=== PATIENT | female | born 1970 | race Caucasian/White ===

== ENCOUNTER 2018-03-08 22:31 | Emergency (ER) | payer OTHER ==
[~2018-03-08] VITALS: Ht 152.4 cm; Wt 49.9 kg
[2018-03-08] MEDS ORDERED: ZOLOFT50 MG (23:05)
[2018-03-08] MEDS ORDERED: CRESTOR5 MG (23:05)
[2018-03-08] MEDS ORDERED: PROZAC20 MG (23:05)
[2018-03-09] MEDS ORDERED: MEDROL4 MG PO (04:16)
== END 2018-03-09 04:22 | disposition home or self-care (01) ==
LOC: ER 22:31
DX: J32.8 Other chronic sinusitis (principal)

== ENCOUNTER 2022-10-29 20:53 | Emergency (ER) | payer OTHER ==
[~2022-10-29] VITALS: Ht 152.4 cm; Wt 52.6 kg
[~2022-10-29 20:53] MED LIST: CRESTOR5 MG; MEDROL4 MG PO; PROZAC20 MG; ZOLOFT50 MG
== END 2022-10-29 23:46 | disposition home or self-care (01) ==
LOC: ER 20:53
DX: N30.90 Cystitis, unspecified without hematuria (principal); Z88.0 Allergy status to penicillin; Z88.6 Allergy status to analgesic agent